=== PATIENT | male | born 1955 | race Caucasian/White ===

== ENCOUNTER 2023-08-08 08:08 | Emergency (ER) | payer MEDICARE ==
[~2023-08-08] VITALS: Ht 180.3 cm; Wt 95.0 kg
[2023-08-08 08:14] VITALS: BP 118/69
[2023-08-08 08:39] LABS: BASO% 0.4 % (0-3); EOS% 4.9 % (0-8); HEMOGLOBIN 10.6 g/dl (14.0-18.0); IMMATURE GRANULOCYTES 0.1 % (0.0-5.0); LYMPH% 26.7 % (15-41); MEAN CELL VOLUME 95.2 fL CALC (80.0-100.0); MEAN CORPUSCULAR HGB 31.5 pG CALC (26.0-32.0); MEAN CORPUSCULAR HGB CONC 33.1 g/dL CAL (32.0-36.0); MONO% 6.2 % (2-13); NEUT# 8.33 thou/uL (1.82-7.42); NEUT% 61.7 % (42-76); RED BLOOD COUNT 3.36 mill/uL (4.70-6.10); RED CELL DISTRI WIDTH 12.5 % (11.5-15.5)
[2023-08-08 09:09] LABS: ALBUMIN 3.5 g/dL (3.2-5.0); ALKALINE PHOSPHATASE 71 u/l (38-126); ANION GAP 9 (6-22 (CALC)); BILIRUBIN, TOTAL 0.7 mg/dL (0.2-1.3); BUN 38 mg/dL (8-23); BUN/CREATININE RATIO 60 (12-20 (CALC)); CARBON DIOXIDE 20 mmol/l (22-30); CHLORIDE 111 mmol/l (95-108); CREATININE 0.6 mg/dL (0.7-1.3); GFR FOR AFR.AMER. > 60 ML/MIN (>=60 (CALC)); GFR OTHER RACES > 60 ML/MIN (>=60 (CALC)); POTASSIUM 4.4 mmol/l (3.5-5.1); SGOT/AST 28 u/l (19-48); SODIUM 136 mmol/l (137-146); TOTAL PROTEIN 5.6 g/dL (6.3-8.2)
[2023-08-08 09:13] LABS: ACT PARTIAL THROMBO TIME 21.3 SECONDS (20.0-32.5); INTERNATIONAL NORMALIZED RATIO 1.1 RATIO (0.7-1.3); PROTHROMBIN TIME 10.4 SECONDS (9.0-12.5)
[2023-08-08 09:30] VITALS: BP 92/59
[2023-08-08 10:00] VITALS: BP 93/60
[2023-08-08] MEDS ORDERED: LOSARTAN POTASS50 MG PO (10:17)
[2023-08-08] MEDS ORDERED: ATENOLOL50 MG PO (10:17)
[2023-08-08] MEDS ORDERED: ATORVASTATIN CA40 MG PO (10:17)
[2023-08-08 10:28] VITALS: BP 93/60
== END 2023-08-08 10:35 ==
LOC: ED 08:08
PROVIDERS: Emergency Medicine
DX: K92.1 Melena (principal); I10 Essential (primary) hypertension; F17.210 Nicotine dependence, cigarettes, uncomplicated